=== PATIENT | female | born 1965 | race Caucasian/White ===

== ENCOUNTER → 2017-12-02 | Outpatient (CLI) | payer MEDICARE, BC ==
[2016-10-04 08:16] VITALS: BP 156/83
[~2017-12-02] MED LIST: ALPR1TAB2 PO; ASPI1TAB31 PO; CARB200T PO; DILT180C64 PO; FENT1PAT19 TP; METF500T9 PO; OXYC1TAB9 PO; PRED-220 PO; QUIN40TA16 PO; SIMV40TA3 PO; TIZA4TAB8 PO; VENL75CA PO; ZOLP10TA PO
--- NOTE | 2017-12-02 18:32 | RAD ---
Ultrasound venous Doppler INDICATION:Left leg pain TECHNIQUE: Grayscale, color Doppler and spectral waveform ultrasound images of the left lower extremity deep veins obtained. COMPARISON: None FINDINGS: The interrogated deep veins are compressible and demonstrate evidence of blood flow with normal respiratory variation and response to augmentation. IMPRESSION: No sonographic evidence of acute DVT of the lower extremity deep veins. Electronically signed by: Vishnu Moya DO (12/02/2017 6:29 PM) [facility]
== END | disposition home or self-care (01) ==
LOC: US 17:31
PROVIDERS: ATTEND Family Medicine
DX: M79.605 Pain in left leg (principal)
CPT/HCPCS: 93971

== ENCOUNTER 2018-04-28 14:14 | Inpatient (IN) | payer MEDICARE, BC ==
[~2018-04-28] VITALS: Ht 167.6 cm; Wt 69.6 kg
[~2018-04-28 14:14] MED LIST changes: +OXYC-411 PO; -OXYC1TAB9 PO
[2018-04-28] MEDS ORDERED: METOCLOPRAMIDE HCL 10 MG/2 ML VIAL. IV PRN (15:15)
[2018-04-28] MEDS ORDERED: ONDANSETRON PF 4 MG/2 ML VIAL. IV PRN (15:15)
[2018-04-28] MEDS ORDERED: ALPR1TAB2 PO (15:20)
[2018-04-28] MEDS ORDERED: APIX5TAB3 PO (15:20)
[2018-04-28] MEDS ORDERED: TIZA4TAB8 PO (15:20)
[2018-04-28] MEDS ORDERED: ZOLP5TAB PO ×2 (15:20)
[2018-04-28] MEDS ORDERED: PANT40TA3 PO (15:20)
[2018-04-28] MEDS ORDERED: OXYC-327 PO (15:22)
[2018-04-28] MEDS ORDERED: oxyCODONE/APAP 7.5/325 1 TAB TABLET PO PRN (15:30)
[2018-04-28] MEDS ORDERED: ZOLPIDEM 5 MG TABLET. PO PRN (15:30)
[2018-04-28 15:32] VITALS: BP 130/65
[2018-04-28] MEDS: IV NORMAL SALINE 1,000ML 1,000 ML IV SCH (15:43)
[2018-04-28] MEDS: PANTOPRAZOLE IV 40 MG VIAL. IVP SCH ×2 (15:43→20:49)
[2018-04-28 16:00] LABS: ALBUMIN 3.5 g/dL (3.4-5.0); ALBUMIN/GLOBULIN RATIO 0.9 (1.0-1.7); CREATININE 1.1 mg/dL (0.6-1.0); GFR 51.8; MAGNESIUM 1.6 mg/dL (1.8-2.4); POTASSIUM 4.4 mmol/L (3.5-5.1); TOTAL BILIRUBIN 0.4 mg/dL (0.2-1.0); TOTAL PROTEIN 7.2 g/dL (6.4-8.2)
[2018-04-28] MEDS ORDERED: ALPRAZolam 0.5 MG TABLET PO PRN (16:00)
[2018-04-28 16:08] LABS: BASO % 0 % (0-3); EOS % 0 % (0-3); HEMATOCRIT 39.8 % (36.0-47.0); HEMOGLOBIN 13.3 g/dL (12.0-15.5); LYMPH # 1.4 x10^3/uL (1.0-4.8); LYMPH % 8 % (24-48); MEAN CORPUSCULAR HEMOGLOBIN 30 pg (25-35); MEAN CORPUSCULAR HGB CONC 33 g/dL (31-37); MEAN CORPUSCULAR VOLUME 90 fL (79-100); MONO # 1.3 x10^3/uL (0.0-1.1); MONO % 7 % (0-9); NEUT # 14.5 x10^3uL (1.8-7.7); NEUT % 85 % (31-73); PLATELET COUNT 350 x10^3/uL (140-400); RED BLOOD COUNT 4.44 x10^6/uL (3.50-5.40); WHITE BLOOD COUNT 17.2 x10^3/uL (4.0-11.0)
[2018-04-28] MEDS: fentaNYL 75MCG/HR 1 PATCH PATCH TD SCH ×2 (16:22→16:27)
[2018-04-28] MEDS: metFORMIN XR 500 MG TAB.ER.24H PO SCH (16:36)
[2018-04-28] MEDS: carBAMazepine 200 MG TABLET PO SCH ×2 (16:43→20:51)
[2018-04-28] MEDS ORDERED: MAGNESIUM SULFATE 2GM 50 ML IV ONE (16:45)
[2018-04-28] MEDS: tiZANidine 4 MG TABLET. PO SCH ×2 (18:00→20:50)
[2018-04-28 18:11] LABS: BACTERIA,URINE 0 /HPF (0-FEW); BILIRUBIN,URINE NEG (NEG); CLARITY,URINE CLEAR; COLOR,URINE YELLOW; GLUCOSE,URINE NEG (NEG); HYALINE CASTS, URINE FEW /HPF; NITRITE,URINE NEG (NEG); RBC,URINE OCC /HPF (0-2); SQUAMOUS EPITHELIAL CELL,UR FEW /LPF; UROBILINOGEN,URINE 0.2 mg/dL (0.2 mg/dL)
[2018-04-28 19:13] LABS: % BANDS 1 % (0-9); % EOS 1 % (0-5); % LYMPHS 6 % (24-48); % MONOS 9 % (0-10); % SEGS 80 % (35-66)
[2018-04-28 19:14] LABS: PLT ESTIMATE ADEQUATE (ADEQUATE)
--- NOTE | 2018-04-28 19:16 | RAD ---
Acute abdomen series. History: Nausea, vomiting, diarrhea for 24 hours. Comparison: None. Findings: Frontal chest radiograph. Cardiac silhouette appears within normal limits for size. No pneumoperitoneum, pneumothorax, or large pleural effusion seen. Subtle densities seen in the left lung base. Supine and upright AP views of the abdomen. Bowel gas pattern is nonspecific, without evidence of small bowel obstruction. Bilateral Essure devices are seen in the pelvis. Calcifications in the pelvis are favored to be phleboliths. Levoconvex scoliosis of the lumbar spine is seen. Impression: 1. Subtle density involving the left lung base, could be atelectasis versus developing airspace disease. 2. Nonspecific bowel gas pattern.. Electronically signed by: Kalyan Aragon MD (04/28/2018 7:12 PM) [facility]
[2018-04-28 19:19] LABS: % ATYL 3 % (0-0)
[2018-04-28 19:30] VITALS: BP 186/86
[2018-04-28] MEDS: ALPRAZolam 0.5 MG TABLET PO SCH (20:50)
[2018-04-28] MEDS: SIMVASTATIN 40 MG TABLET. PO SCH (20:50)
[2018-04-28] MEDS: ZOLPIDEM 5 MG TABLET. PO SCH (20:50)
[2018-04-28] MEDS: VENLAFAXINE 50 MG TABLET. PO SCH (20:51)
[2018-04-28] MEDS ORDERED: hydrALAZINE 20 MG/ML VIAL. IV PRN (21:45)
[2018-04-28 22:00] LABS: FECAL OB PT POSITIVE (NEG)
[2018-04-28] MEDS: CLINDAMYCIN 600MG PREMIX 50 ML IV SCH (22:04)
[2018-04-28] MEDS: VANCOMYCIN PER PHARMACY MC PRN (22:16)
[2018-04-28 23:00] VITALS: BP 132/60
[2018-04-28] MEDS ORDERED: VANCOMYCIN 1.75 GM in IV NORMAL SALINE 500ML 500 ML IV ONE (23:00)
[2018-04-29] MEDS: IV NORMAL SALINE 1,000ML 1,000 ML IV SCH ×3 (02:03→18:22)
[2018-04-29 03:00] VITALS: BP 119/54
[2018-04-29] MEDS: CLINDAMYCIN 600MG PREMIX 50 ML IV SCH ×3 (06:23→21:10)
[2018-04-29] MEDS: tiZANidine 4 MG TABLET. PO SCH ×4 (06:23→20:58)
[2018-04-29 06:46] LABS: BASO # 0.1 x10^3/uL (0.0-0.2); BASO % 0 % (0-3); EOS # 0.1 x10^3/uL (0.0-0.7); EOS % 1 % (0-3); HEMATOCRIT 35.5 % (36.0-47.0); LYMPH # 1.5 x10^3/uL (1.0-4.8); LYMPH % 12 % (24-48); MEAN CORPUSCULAR HEMOGLOBIN 30 pg (25-35); MEAN CORPUSCULAR HGB CONC 34 g/dL (31-37); MEAN CORPUSCULAR VOLUME 90 fL (79-100); MONO # 1.2 x10^3/uL (0.0-1.1); MONO % 9 % (0-9); NEUT # 9.6 x10^3uL (1.8-7.7); NEUT % 78 % (31-73); PLATELET COUNT 325 x10^3/uL (140-400); RED BLOOD COUNT 3.95 x10^6/uL (3.50-5.40); RED CELL DISTRIBUTION WIDTH 16.2 % (11.5-14.5); WHITE BLOOD COUNT 12.4 x10^3/uL (4.0-11.0)
[2018-04-29 06:57] LABS: ALBUMIN 3.2 g/dL (3.4-5.0); ALBUMIN/GLOBULIN RATIO 0.9 (1.0-1.7); CALCIUM 8.7 mg/dL (8.5-10.1); CREATININE 0.7 mg/dL (0.6-1.0); GFR 87.2; MAGNESIUM 2.1 mg/dL (1.8-2.4); POTASSIUM 3.9 mmol/L (3.5-5.1); TOTAL BILIRUBIN 0.4 mg/dL (0.2-1.0); TOTAL PROTEIN 6.7 g/dL (6.4-8.2)
[2018-04-29] MEDS: carBAMazepine 200 MG TABLET PO SCH ×4 (07:50→20:58)
[2018-04-29] MEDS: VENLAFAXINE 50 MG TABLET. PO SCH ×3 (07:50→20:59)
[2018-04-29] MEDS: PANTOPRAZOLE IV 40 MG VIAL. IVP SCH ×2 (07:50→20:57)
[2018-04-29] MEDS: metFORMIN XR 500 MG TAB.ER.24H PO SCH ×2 (07:50→17:10)
[2018-04-29] MEDS: LACTOBACILLUS RHAMNOSUS GG 1 CAPSULE. PO SCH ×2 (08:30→20:59)
[2018-04-29] MEDS ORDERED: LISINOPRIL 20 MG TABLET PO SCH (09:00)
[2018-04-29 09:17] VITALS: BP 150/64
[2018-04-29] MEDS ORDERED: LISINOPRIL 20 MG TABLET PO ONE (10:00)
[2018-04-29 13:22] VITALS: BP 123/59
[2018-04-29 19:45] VITALS: BP 140/63
[2018-04-29] MEDS: SUCRALFATE 1 GM/10 ML ORAL.SUSP. PO SCH (20:57)
[2018-04-29] MEDS: VANCOMYCIN 1 GM in IV NORMAL SALINE 250ML 250 ML IV SCH (20:57)
[2018-04-29] MEDS: ZOLPIDEM 5 MG TABLET. PO SCH (20:57)
[2018-04-29] MEDS: ALPRAZolam 0.5 MG TABLET PO SCH (20:58)
[2018-04-29] MEDS: SIMVASTATIN 40 MG TABLET. PO SCH (20:59)
[2018-04-29] MEDS: MUPIROCIN 2% TOPICAL OINTMENT 22GM TUBE. TP SCH (21:09)
[2018-04-30] VITALS (8 sets, daily range): BP systolic 91–178; BP diastolic 53–92
--- NOTE | 2018-04-30 02:50 | HP ---
ADMIT DATE: 04/28/2018 HISTORY OF PRESENT ILLNESS: A 52-year-old female admitted with increased nausea, vomiting, diarrhea, and dehydration. The patient came in. She had been sick for 2-3 days prior to admission, got progressively worse, unable to keep fluids down. Her white count was markedly elevated. DICTATION ENDS HERE. ESTELA MOREIRA MD DR: ANGELINE/blas JOB#: [id number] / [id number]
--- NOTE | 2018-04-30 06:14 | HP ---
ADMIT DATE: 04/28/2018 HISTORY OF PRESENT ILLNESS: A 52-year-old female admitted yesterday with nausea, vomiting, abdominal pain and some diarrhea. The patient came in. She was noted to have an elevated white count of 17,000. The patient was unable to keep much in the way of fluids down or eat or drink. She was dehydrated as well. The patient was admitted to the hospital for further evaluation, IV fluid hydration and further reconciliation of her diarrhea and abdominal pain. The patient per her history, she has progressive multiple sclerosis, hypercholesterolemia, hypertension. She has had a history of gastric ulcers, abdominal surgery for umbilical hernia repair. She has had nausea, vomiting, endometriosis, oophorectomy, diabetes, depression, multiple sclerosis. She has had DVTs in her legs as well as her immunizations for influenza and pneumococcal vaccinations are up-to-date. FAMILY HISTORY: Mother with asthma. Father of some form of cancer. ALLERGIES: THE PATIENT HAS ALLERGY TO SULFA, BACLOFEN, KEFLEX, AND SOME TYPE OF ANTIVIRAL VALGANCICLOVIR. HOME MEDICATIONS: Include that of Zanaflex 4 mg t.i.d., Eliquis 5 mg p.o. b.i.d., simvastatin 40 mg a day, diltiazem 180 mg daily, fentanyl patch every 72 hours 75 mcg, quinapril 40 mg a day, Tegretol 200 mg 4 times a day, Effexor XR, Xanax 1 mg at bedtime, Ambien 5 mg at bedtime, Protonix 40 mg b.i.d., and metformin. SOCIAL HISTORY: The patient denies smoking, alcohol, or drug use. REVIEW OF SYSTEMS: The patient outside of her abdominal pain and cramping also has slight diarrhea, nausea. The patient has been basically stable. She denies chest pain, shortness of breath. Denies headaches, visual changes, blurred vision. Denies any melena, hematochezia, or hematemesis. Neurologically baseline for her. PHYSICAL EXAMINATION: GENERAL: This is a pleasant white female, looking quite ill. VITAL SIGNS: Blood pressure 130/60, respiratory rate 17, pulse 95, afebrile. HEENT: The patient's head was atraumatic, normocephalic. Eyes: PERRLA without jaundice. Mouth and throat were normal. NECK: Supple without JVD, carotid bruits or thyromegaly. LUNGS: Diminished throughout, poor movement of air but clear. CARDIOVASCULAR: Regular sinus rhythm, S1, S2, without murmur, rub, thrill, or extra heart sound. ABDOMEN: Soft, diffuse tenderness in the mid epigastric to left upper quadrant area. EXTREMITIES: No clubbing, cyanosis or edema. NEUROLOGIC: Baseline. LABORATORY DATA: The patient's white count was 17,000, hemoglobin 13, hematocrit 39. The patient's chemistry showed a BUN of 28 and creatinine 1.1, came down to 13 and 0.7 showing the degree of dehydration on this patient. Blood sugar 123. Lactic acid not quite 2. Magnesium was low. Alkaline phosphatase elevated and some slight decrease in her protein. The patient otherwise had positive MRSA around her nares and was positive for stool blood. The patient will be admitted, placed on IV fluids. We will go ahead and she is scheduled to get a CAT scan and make further evaluation of her situation. We will continue with IV fluids and make further evaluation on her electrolytes as well as her other testing as well. 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 Immunizations were up-to-date. PLAN: In any case, the patient would continue with IV fluids, CT scan of the abdomen and pelvis, and make further evaluation on her as indicated. ESTELA MOREIRA MD DR: ANGELINE/blas JOB#: [id number] / [id number]
--- NOTE | 2018-04-30 06:44 | RAD ---
PA and lateral chest. HISTORY: Cough PA and lateral views were taken of the chest. Lungs are clear. There is mild scoliosis. Heart is normal in size. IMPRESSION: 1. No acute chest disease. Electronically signed by: Avinash Gallagher MD (04/30/2018 6:40 AM) [id number]
--- NOTE | 2018-04-30 06:46 | RAD ---
CT brain without contrast. HISTORY: Fall head trauma, laceration forehead Noncontrast CT study was performed to evaluate the brain. There is no intracranial hemorrhage or subdural hematoma. There is mild diffuse atrophy. Ventricles are normal in size. There is no mass or shift of the midline. Sinuses are clear. A skull fracture is not identified. There is soft tissue swelling on the forehead on the right. IMPRESSION: 1. No intracranial hemorrhage or acute finding noted. PQRS Compliance Statement: One or more of the following individualized dose reduction techniques were utilized for this examination: 1. Automated exposure control 2. Adjustment of the mA and/or kV according to patient size 3. Use of iterative reconstruction technique Electronically signed by: Avinash Gallagher MD (04/30/2018 6:42 AM) [facility]
[2018-04-30] MEDS: tiZANidine 4 MG TABLET. PO SCH ×4 (07:00→20:40)
[2018-04-30] MEDS: IV NORMAL SALINE 1,000ML 1,000 ML IV SCH ×2 (07:01→17:01)
[2018-04-30] MEDS: CLINDAMYCIN 600MG PREMIX 50 ML IV SCH (07:11)
[2018-04-30] MEDS: PANTOPRAZOLE IV 40 MG VIAL. IVP SCH (08:00)
[2018-04-30] MEDS: SUCRALFATE 1 GM/10 ML ORAL.SUSP. PO SCH ×4 (08:00→20:40)
[2018-04-30] MEDS: VENLAFAXINE 50 MG TABLET. PO SCH ×3 (08:01→20:40)
[2018-04-30] MEDS: MUPIROCIN 2% TOPICAL OINTMENT 22GM TUBE. TP SCH ×2 (08:01→20:41)
[2018-04-30] MEDS: metFORMIN XR 500 MG TAB.ER.24H PO SCH ×2 (08:01→17:00)
[2018-04-30] MEDS: carBAMazepine 200 MG TABLET PO SCH ×4 (08:01→20:40)
[2018-04-30] MEDS: LACTOBACILLUS RHAMNOSUS GG 1 CAPSULE. PO SCH (08:01)
[2018-04-30] MEDS: FLUTICASONE 50MCG/NASAL SPRAY 16GM BOTTLE. NS SCH (08:01)
[2018-04-30] MEDS: LISINOPRIL 20 MG TABLET PO SCH (08:01)
[2018-04-30 08:27] LABS: BASO % 0 % (0-3); EOS # 0.1 x10^3/uL (0.0-0.7); EOS % 1 % (0-3); HEMOGLOBIN 11.2 g/dL (12.0-15.5); LYMPH # 1.1 x10^3/uL (1.0-4.8); LYMPH % 13 % (24-48); MEAN CORPUSCULAR HEMOGLOBIN 30 pg (25-35); MEAN CORPUSCULAR HGB CONC 33 g/dL (31-37); MEAN CORPUSCULAR VOLUME 91 fL (79-100); MONO # 0.7 x10^3/uL (0.0-1.1); MONO % 9 % (0-9); NEUT # 6.2 x10^3uL (1.8-7.7); NEUT % 77 % (31-73); PLATELET COUNT 277 x10^3/uL (140-400); RED BLOOD COUNT 3.74 x10^6/uL (3.50-5.40); RED CELL DISTRIBUTION WIDTH 15.9 % (11.5-14.5); WHITE BLOOD COUNT 8.1 x10^3/uL (4.0-11.0)
--- NOTE | 2018-04-30 08:28 | RAD ---
CT of the abdomen and pelvis without contrast, 04/30/2018: HISTORY: Fall, abdominal pain, diarrhea, nausea and vomiting Noncontrast scans were obtained as requested. The unopacified liver is unremarkable. There is vague increased density within the dependent aspect of the gallbladder suggesting sludge versus tiny calculi. The pancreas is unremarkable. The spleen is of normal size. The unopacified kidneys show no abnormality. There is moderate aortoiliac calcific plaquing without evidence of aneurysm. No abdominal or pelvic adenopathy is seen. Linear radiopacities related to the uterus probably represent fallopian tube occlusion devices. The bowel loops are not dilated. There is a suggestion of mild mural thickening involving the descending colon and sigmoid colon, although the structures are not well distended. Minimal streaky increased density in the paracolic fat adjacent to the distal descending colon suggests minimal inflammation or scarring. The cecum is low-lying in the anterior aspect of the pelvis. The appendix is not visualized. No dilated appendix or pericecal inflammatory process is seen. Small bubbles of gas along the medial aspect of the second portion of the duodenum probably lie within a duodenal diverticulum. No free air is evident in the abdomen. There is a small amount of free fluid in the deep pelvis. This amount of fluid can be on a physiologic basis. IMPRESSION: 1. Slightly increased density within the dependent aspect of the gallbladder raising the possibility of biliary sludge versus small calculi. 2. Probable mild mural thickening involving the descending and sigmoid colon suggesting nonspecific colitis. 3. Tiny amount of free fluid in the pelvis. Electronically signed by: Surinder Monsivais MD (04/30/2018 8:25 AM) [facility]
[2018-04-30 08:42] LABS: CALCIUM 8.7 mg/dL (8.5-10.1); GFR 57.8; POTASSIUM 3.6 mmol/L (3.5-5.1)
[2018-04-30] MEDS: ALPRAZolam 0.5 MG TABLET PO SCH (20:39)
[2018-04-30] MEDS: ZOLPIDEM 5 MG TABLET. PO SCH (20:40)
[2018-04-30] MEDS: SIMVASTATIN 40 MG TABLET. PO SCH (20:40)
[2018-04-30 21:40] LABS: VANC TR 5.9 mcg/mL (10.0-20.0)
[2018-04-30] MEDS: VANCOMYCIN 1 GM in IV NORMAL SALINE 250ML 250 ML IV SCH (21:50)
[2018-04-30] MEDS: VANCOMYCIN PER PHARMACY MC PRN (22:04)
--- NOTE | 2018-05-01 00:42 | PN ---
DATE: SUBJECTIVE: A 52-year-old female came in with severe nausea, vomiting, abdominal pain. CT scan shows the possibility of a problem of colitis, and as a result of this, the patient is receiving IV clindamycin and now switched over to metronidazole. The patient's white count has come down from 17,000 down to 8000, and the patient is feeling better overall. The patient continues to be monitored. She is not having any further diarrhea. Other body sources are basically positive for blood and MRSA ([place]). However, C. difficile has not been ____ yet. OBJECTIVE: GENERAL: Otherwise, on exam, she is a very pleasant white female who is feeling somewhat better overall. VITAL SIGNS: Blood pressure 160/80, respiration 18, pulse 90. Running low grade temperature. We will continue with IV antibiotic and make further evaluation on her. IMPRESSION: Colitis, history of multiple sclerosis, positive for methicillin-resistant Staphylococcus aureus around the nares. Continue to give IV antibiotic therapy and make further assessment as indicated there. ESETLA MOREIRA MD DR: ANGELINE/blas JOB#: [id number] / [id number]
[2018-05-01] MEDS: IV NORMAL SALINE 1,000ML 1,000 ML IV SCH ×3 (03:01→23:01)
[2018-05-01 05:15] VITALS: BP 155/79
[2018-05-01] MEDS: SUCRALFATE 1 GM/10 ML ORAL.SUSP. PO SCH ×4 (06:32→21:45)
[2018-05-01] MEDS: carBAMazepine 200 MG TABLET PO SCH ×4 (06:32→21:44)
[2018-05-01] MEDS: tiZANidine 4 MG TABLET. PO SCH ×4 (06:32→21:45)
[2018-05-01] MEDS: PANTOPRAZOLE IV 40 MG VIAL. IVP SCH (06:33)
[2018-05-01 08:36] LABS: BASO % 1 % (0-3); CALCIUM 8.9 mg/dL (8.5-10.1); EOS # 0.1 x10^3/uL (0.0-0.7); EOS % 2 % (0-3); GFR 57.8; HEMATOCRIT 32.6 % (36.0-47.0); HEMOGLOBIN 10.9 g/dL (12.0-15.5); LYMPH # 1.2 x10^3/uL (1.0-4.8); LYMPH % 15 % (24-48); MEAN CORPUSCULAR HEMOGLOBIN 30 pg (25-35); MEAN CORPUSCULAR HGB CONC 34 g/dL (31-37); MEAN CORPUSCULAR VOLUME 90 fL (79-100); MONO # 0.7 x10^3/uL (0.0-1.1); MONO % 9 % (0-9); NEUT # 5.7 x10^3uL (1.8-7.7); NEUT % 74 % (31-73); PLATELET COUNT 274 x10^3/uL (140-400); POTASSIUM 3.4 mmol/L (3.5-5.1); RED BLOOD COUNT 3.61 x10^6/uL (3.50-5.40); RED CELL DISTRIBUTION WIDTH 15.7 % (11.5-14.5); WHITE BLOOD COUNT 7.7 x10^3/uL (4.0-11.0)
[2018-05-01] MEDS: fentaNYL 75MCG/HR 1 PATCH PATCH TD SCH (08:48)
[2018-05-01] MEDS: VENLAFAXINE 50 MG TABLET. PO SCH ×3 (08:48→21:45)
[2018-05-01] MEDS: MUPIROCIN 2% TOPICAL OINTMENT 22GM TUBE. TP SCH ×2 (08:48→21:47)
[2018-05-01] MEDS: metFORMIN XR 500 MG TAB.ER.24H PO SCH ×2 (08:49→17:25)
[2018-05-01] MEDS: LISINOPRIL 20 MG TABLET PO SCH (08:49)
[2018-05-01] MEDS: VANCOMYCIN 1 GM in IV NORMAL SALINE 250ML 250 ML IV SCH ×2 (08:53→21:50)
[2018-05-01] MEDS: FLUTICASONE 50MCG/NASAL SPRAY 16GM BOTTLE. NS SCH ×2 (08:57→21:44)
[2018-05-01] MEDS ORDERED: MUPIROCIN 2% TOPICAL OINTMENT 22GM TUBE. TP SCH (09:00)
[2018-05-01 11:11] VITALS: BP 154/75
[2018-05-01 17:35] VITALS: BP 192/88
[2018-05-01] MEDS: ZOLPIDEM 5 MG TABLET. PO SCH (21:44)
[2018-05-01] MEDS: SIMVASTATIN 40 MG TABLET. PO SCH (21:44)
[2018-05-01] MEDS: ALPRAZolam 0.5 MG TABLET PO SCH (21:45)
[2018-05-01] MEDS ORDERED: hydrALAZINE 20 MG/ML VIAL. IV PRN (22:30)
[2018-05-02] MEDS: FLUTICASONE 50MCG/NASAL SPRAY 16GM BOTTLE. NS SCH (09:00)
[2018-05-02] MEDS: IV NORMAL SALINE 1,000ML 1,000 ML IV SCH (09:01)
[2018-05-02 09:14] LABS: VANC TR 21.6 mcg/mL (10.0-20.0)
[2018-05-02] MEDS: VANCOMYCIN 1 GM in IV NORMAL SALINE 250ML 250 ML IV SCH (09:15)
[2018-05-02] MEDS: MUPIROCIN 2% TOPICAL OINTMENT 22GM TUBE. TP SCH (09:15)
[2018-05-02] MEDS: SUCRALFATE 1 GM/10 ML ORAL.SUSP. PO SCH (09:15)
[2018-05-02] MEDS: tiZANidine 4 MG TABLET. PO SCH (09:15)
[2018-05-02 09:16] VITALS: BP 192/88
[2018-05-02] MEDS: PANTOPRAZOLE IV 40 MG VIAL. IVP SCH (09:16)
[2018-05-02] MEDS: metFORMIN XR 500 MG TAB.ER.24H PO SCH (09:16)
[2018-05-02] MEDS: LISINOPRIL 20 MG TABLET PO SCH (09:16)
[2018-05-02] MEDS: carBAMazepine 200 MG TABLET PO SCH (09:17)
[2018-05-02] MEDS: VENLAFAXINE 50 MG TABLET. PO SCH (09:17)
[2018-05-02] MEDS: VANCOMYCIN PER PHARMACY MC PRN (09:41)
[2018-05-02] MEDS ORDERED: FLUT16SP21 NS (09:48)
[2018-05-02] MEDS ORDERED: METR500T8 PO (09:48)
[2018-05-02] MEDS ORDERED: SUCR1ORA5 PO (09:48)
[2018-05-02] MEDS ORDERED: MUPI22OI2 TP (09:48)
--- NOTE | 2018-05-02 21:12 | PN ---
DATE: 05/01/2018 SUBJECTIVE: The patient is resting fairly comfortably. A 52-year-old female with colitis. Today she is feeling overall better, but still somewhat tender in her abdomen. OBJECTIVE: VITAL SIGNS: Blood pressure up to 192/88 (NC), respiratory rate 18, and pulse 80. Afebrile. GENERAL: The patient is alert and oriented. LUNGS: Diminished, but clear. CARDIOVASCULAR: Stable. ABDOMEN: Soft, diffuse tenderness. PLAN: We will go ahead and continue to give IV antibiotic therapy for now, control at the hypertensive urgency and make further evaluation on her as indicated. IMPRESSION: Colitis, essential urgent hypertension, anemia of chronic disease, and history of progressive multiple sclerosis. ESTELA MOREIRA MD DR: ANGELINE/nts JOB#: [id number] / [id number]
[2018-05-03] MEDS ORDERED: VANCOMYCIN 1 GM in IV NORMAL SALINE 250ML 250 ML IV SCH (03:00)
== END 2018-05-02 11:30 | disposition home or self-care (01) | DRG 871 ==
LOC: ICU 14:14
PROVIDERS: ADMIT Family Medicine; ATTEND Family Medicine
DX: A41.9 Sepsis, unspecified organism (principal); N17.0 Acute kidney failure with tubular necrosis; E44.1 Mild protein-calorie malnutrition; B95.62 Methicillin resistant Staphylococcus aureus infection as the cause of diseases classified elsewhere; D63.8 Anemia in other chronic diseases classified elsewhere; E11.9 Type 2 diabetes mellitus without complications; E78.00 Pure hypercholesterolemia, unspecified; E86.0 Dehydration; G35 Multiple sclerosis; F32.9 Major depressive disorder, single episode, unspecified; I10 Essential (primary) hypertension; K52.9 Noninfective gastroenteritis and colitis, unspecified; Z82.5 Family history of asthma and other chronic lower respiratory diseases; Z86.718 Personal history of other venous thrombosis and embolism; Z87.11 Personal history of peptic ulcer disease; Z68.24 Body mass index [BMI] 24.0-24.9, adult; Z88.6 Allergy status to analgesic agent; Z88.2 Allergy status to sulfonamides; Z88.8 Allergy status to other drugs, medicaments and biological substances
CPT/HCPCS: 36415; 70450; 71046; 74022; 74176; 80048; 80053; 80202; 81001; 82274; 83605; 83735; 85007; 85025; 85379; 85610; 87045; 87641; C9113; J2405; J3370; J3475; J3490; J7040; J7050; J7030

== ENCOUNTER 2018-06-05 11:59 | Inpatient (IN) | payer MEDICARE, BC ==
[~2018-06-05] VITALS: Ht 167.6 cm; Wt 68.1 kg
[~2018-06-05 11:59] MED LIST changes: +APIX5TAB3 PO; +FLUT16SP21 NS; +METR500T8 PO; +MUPI22OI2 TP; +OXYC-327 PO; +PANT40TA3 PO; +SUCR1ORA5 PO; +ZOLP5TAB PO
[2018-06-05 12:47] VITALS: BP 164/85
[2018-06-05] MEDS ORDERED: METO25TA4 PO (13:23)
[2018-06-05] MEDS ORDERED: FERR325T14 PO (13:31)
[2018-06-05] MEDS ORDERED: APIX5TAB3 PO (13:32)
[2018-06-05] MEDS ORDERED: GLAT40SY SQ (13:36)
[2018-06-05] MEDS ORDERED: ACETAMINOPHEN 325 MG TABLET PO PRN (13:45)
[2018-06-05] MEDS ORDERED: ONDANSETRON PF 4 MG/2 ML VIAL. IV PRN (13:45)
[2018-06-05 14:07] LABS: BASO % 0 % (0-3); EOS % 0 % (0-3); HEMOGLOBIN 13.8 g/dL (12.0-15.5); LYMPH # 1.2 x10^3/uL (1.0-4.8); LYMPH % 14 % (24-48); MEAN CORPUSCULAR HEMOGLOBIN 31 pg (25-35); MEAN CORPUSCULAR HGB CONC 35 g/dL (31-37); MEAN CORPUSCULAR VOLUME 90 fL (79-100); MONO # 0.6 x10^3/uL (0.0-1.1); MONO % 7 % (0-9); NEUT # 6.6 x10^3uL (1.8-7.7); NEUT % 79 % (31-73); PLATELET COUNT 402 x10^3/uL (140-400); RED BLOOD COUNT 4.44 x10^6/uL (3.50-5.40); RED CELL DISTRIBUTION WIDTH 14.8 % (11.5-14.5); WHITE BLOOD COUNT 8.4 x10^3/uL (4.0-11.0)
[2018-06-05 14:21] LABS: ALBUMIN 4.4 g/dL (3.4-5.0); ALBUMIN/GLOBULIN RATIO 1.1 (1.0-1.7); CALCIUM 9.8 mg/dL (8.5-10.1); CREATININE 1.3 mg/dL (0.6-1.0); GFR 42.7; POTASSIUM 3.9 mmol/L (3.5-5.1); TOTAL BILIRUBIN 0.3 mg/dL (0.2-1.0); TOTAL PROTEIN 8.4 g/dL (6.4-8.2)
--- NOTE | 2018-06-05 14:59 | RAD ---
CT Abdomen and Pelvis without contrast History: Abdominal pain with nausea and vomiting Technique: Noncontrast CT imaging was performed of the abdomen and pelvis. Multiplanar images are reviewed. Exposure: One or more of the following individualized dose reduction techniques were utilized for this examination: 1. Automated exposure control 2. Adjustment of the mA and/or kV according to patient size 3. Use of iterative reconstruction technique. Comparison: April 30, 2018 Findings: Accurate evaluation of abdominal visceral organs is limited without intravenous contrast. There is no obvious abnormality of the spleen, liver, or pancreas. There is no adrenal nodularity. No urolithiasis or hydronephrosis is identified. Gallbladder is present again with some vague dependent hyperdensity. Aaccurate evaluation of bowel is limited without oral contrast. There is no significant free air, free fluid, bowel dilatation. Appendix is not visualized if still present. Cecum is now more deviated to the left abdominal region. There is mild sigmoid diverticulosis, not associated with significant inflammatory change. Impression: 1. There is again some vague hyperdensity in the gallbladder possibly due to sludge or cholelithiasis. Appendix is not visualized if still present. 2. Bowel is not considered slightly dilated. There is now deviation of the cecum to the left abdomen (mobile or floppy cecem). There is mild sigmoid diverticulosis. Electronically signed by: Forest Du MD (06/05/2018 2:56 PM) [id number]
[2018-06-05] MEDS: IV NORMAL SALINE 1,000ML 1,000 ML IV SCH ×2 (15:04→21:11)
[2018-06-05 15:23] VITALS: BP 177/87
[2018-06-05] MEDS ORDERED: oxyCODONE/APAP 7.5/325 1 TAB TABLET PO PRN (16:00)
[2018-06-05] MEDS: SUCRALFATE 1 GM TABLET. PO SCH ×2 (17:28→21:10)
[2018-06-05] MEDS: PANTOPRAZOLE IV 40 MG VIAL. IVP SCH (17:28)
[2018-06-05] MEDS: carBAMazepine 200 MG TABLET PO SCH ×2 (17:28→21:10)
[2018-06-05] MEDS: metFORMIN XR 500 MG TAB.ER.24H PO SCH (17:28)
[2018-06-05] MEDS: tiZANidine 4 MG TABLET. PO SCH ×2 (17:28→21:09)
[2018-06-05 20:00] VITALS: BP 181/81
[2018-06-05] MEDS: APIXABAN 5 MG TABLET. PO SCH (21:00)
[2018-06-05] MEDS ORDERED: PANTOPRAZOLE 40 MG TABLET. PO SCH (21:00)
[2018-06-05] MEDS: Glatiramer Acetate (Copaxone) 40 MG SQ SCH (21:07)
[2018-06-05] MEDS: VENLAFAXINE 100 MG TABLET. PO SCH (21:09)
[2018-06-05] MEDS: METOPROLOL TART IMMED RELEASE 25 MG TABLET PO SCH (21:10)
[2018-06-05] MEDS: SIMVASTATIN 40 MG TABLET. PO SCH (21:10)
[2018-06-05] MEDS: ALPRAZolam 0.5 MG TABLET PO SCH (21:10)
[2018-06-05] MEDS: ZOLPIDEM 5 MG TABLET. PO PRN (21:11)
[2018-06-05 22:14] VITALS: BP 117/61
[2018-06-06] VITALS (7 sets, daily range): BP systolic 130–188; BP diastolic 64–92
[2018-06-06 04:51] LABS: CLARITY,URINE CLEAR; COLOR,URINE YELLOW
[2018-06-06 04:52] LABS: BACTERIA,URINE 0 /HPF (0-FEW); BILIRUBIN,URINE NEG (NEG); GLUCOSE,URINE NEG (NEG); NITRITE,URINE NEG (NEG); RBC,URINE 0 /HPF (0-2); SQUAMOUS EPITHELIAL CELL,UR FEW /LPF; UROBILINOGEN,URINE 0.2 mg/dL (0.2 mg/dL); WBC,URINE OCC /HPF (0-4)
[2018-06-06 04:53] LABS: HYALINE CASTS, URINE OCC /HPF
[2018-06-06] MEDS: tiZANidine 4 MG TABLET. PO SCH ×4 (06:29→21:01)
[2018-06-06 06:48] LABS: BASO # 0.1 x10^3/uL (0.0-0.2); BASO % 1 % (0-3); EOS # 0.1 x10^3/uL (0.0-0.7); EOS % 1 % (0-3); HEMATOCRIT 36.1 % (36.0-47.0); HEMOGLOBIN 12.4 g/dL (12.0-15.5); LYMPH # 2.1 x10^3/uL (1.0-4.8); LYMPH % 28 % (24-48); MEAN CORPUSCULAR HEMOGLOBIN 31 pg (25-35); MEAN CORPUSCULAR HGB CONC 34 g/dL (31-37); MEAN CORPUSCULAR VOLUME 90 fL (79-100); MONO % 13 % (0-9); NEUT # 4.4 x10^3uL (1.8-7.7); NEUT % 58 % (31-73); PLATELET COUNT 385 x10^3/uL (140-400); RED CELL DISTRIBUTION WIDTH 14.9 % (11.5-14.5); WHITE BLOOD COUNT 7.6 x10^3/uL (4.0-11.0)
[2018-06-06 06:51] LABS: CALCIUM 9.3 mg/dL (8.5-10.1); CREATININE 0.9 mg/dL (0.6-1.0); GFR 65.2; POTASSIUM 3.9 mmol/L (3.5-5.1)
[2018-06-06] MEDS: SUCRALFATE 1 GM TABLET. PO SCH ×4 (07:45→21:01)
[2018-06-06] MEDS: APIXABAN 5 MG TABLET. PO SCH ×2 (09:00→21:00)
[2018-06-06] MEDS: FLUTICASONE 50MCG/NASAL SPRAY 16GM BOTTLE. NS SCH (09:01)
[2018-06-06] MEDS: METOPROLOL TART IMMED RELEASE 25 MG TABLET PO SCH ×2 (09:02→21:02)
[2018-06-06] MEDS: metFORMIN XR 500 MG TAB.ER.24H PO SCH ×2 (09:02→17:22)
[2018-06-06] MEDS: FERROUS SULFATE 325 MG TABLET. PO SCH (09:02)
[2018-06-06] MEDS: LISINOPRIL 20 MG TABLET PO SCH (09:02)
[2018-06-06] MEDS: carBAMazepine 200 MG TABLET PO SCH ×4 (09:03→21:02)
[2018-06-06] MEDS: VENLAFAXINE 100 MG TABLET. PO SCH ×3 (09:04→21:00)
[2018-06-06] MEDS: PANTOPRAZOLE IV 40 MG VIAL. IVP SCH (09:04)
[2018-06-06] MEDS: IV NORMAL SALINE 1,000ML 1,000 ML IV SCH ×2 (09:13→17:24)
[2018-06-06] MEDS: ASA/APAP/CAFFEINE 250/250/65MG TABLET. PO PRN ×2 (13:42→21:01)
[2018-06-06] MEDS: SIMVASTATIN 40 MG TABLET. PO SCH (21:00)
[2018-06-06] MEDS: ALPRAZolam 0.5 MG TABLET PO SCH (21:02)
[2018-06-06] MEDS: ZOLPIDEM 5 MG TABLET. PO PRN (21:02)
--- NOTE | 2018-06-07 04:20 | PN ---
DATE: SUBJECTIVE: The patient resting fairly comfortably, came in with severe nausea and vomiting, some of that is resolved. She is becoming a little bit more tolerating, start her on clear liquids and will continue to monitor her accordingly. PHYSICAL EXAMINATION: VITAL SIGNS: Otherwise, the patient's blood pressure is still elevated at 185/92, pulse upwards of 100, temperature she is afebrile. She did have initial temperature when she came in to 99.5. GENERAL: The patient otherwise seems to be resting fairly comfortably, will continue to be monitored carefully, make further evaluation. Otherwise, the patient is alert and oriented. LUNGS: Diminished, but clear. CARDIOVASCULAR: Stable. ABDOMEN: Soft, nontender, no rebounding, no guarding. Positive bowel sounds. IMPRESSION: Therefore, nausea, vomiting, dehydration, possible gallbladder problem, hypertension and sinus tachycardia. ESTELA MOREIRA MD DR: ANGELINE/blas JOB#: [id number] / [id number]
[2018-06-07] MEDS: IV NORMAL SALINE 1,000ML 1,000 ML IV SCH ×2 (05:15→17:00)
[2018-06-07 05:30] VITALS: BP 149/73
[2018-06-07] MEDS: tiZANidine 4 MG TABLET. PO SCH ×4 (06:10→21:25)
[2018-06-07] MEDS: SUCRALFATE 1 GM TABLET. PO SCH ×4 (07:30→21:25)
[2018-06-07] MEDS: APIXABAN 5 MG TABLET. PO SCH ×2 (09:00→21:00)
[2018-06-07] MEDS: carBAMazepine 200 MG TABLET PO SCH ×4 (09:38→21:26)
[2018-06-07] MEDS: LISINOPRIL 20 MG TABLET PO SCH (09:38)
[2018-06-07] MEDS: metFORMIN XR 500 MG TAB.ER.24H PO SCH ×2 (09:38→16:58)
[2018-06-07] MEDS: METOPROLOL TART IMMED RELEASE 25 MG TABLET PO SCH ×2 (09:39→21:26)
[2018-06-07] MEDS: PANTOPRAZOLE IV 40 MG VIAL. IVP SCH (09:39)
[2018-06-07] MEDS: FERROUS SULFATE 325 MG TABLET. PO SCH (09:39)
[2018-06-07] MEDS: VENLAFAXINE 100 MG TABLET. PO SCH ×3 (09:40→21:25)
[2018-06-07] MEDS: FLUTICASONE 50MCG/NASAL SPRAY 16GM BOTTLE. NS SCH (09:40)
[2018-06-07 11:00] VITALS: BP 169/75
[2018-06-07] MEDS: ASA/APAP/CAFFEINE 250/250/65MG TABLET. PO PRN ×2 (14:05→21:25)
[2018-06-07 15:00] VITALS: BP 151/77
[2018-06-07 19:31] VITALS: BP 164/94
[2018-06-07] MEDS ORDERED: fentaNYL 75MCG/HR 1 PATCH PATCH TD SCH (21:00)
[2018-06-07] MEDS: ZOLPIDEM 5 MG TABLET. PO PRN (21:25)
[2018-06-07] MEDS: SIMVASTATIN 40 MG TABLET. PO SCH (21:26)
[2018-06-07] MEDS: ALPRAZolam 0.5 MG TABLET PO SCH (21:26)
[2018-06-07] MEDS: Glatiramer Acetate (Copaxone) 40 MG SQ SCH (21:26)
[2018-06-07 22:30] VITALS: BP 147/81
--- NOTE | 2018-06-08 01:05 | PN ---
DATE: 06/07/2018 SUBJECTIVE: A 52-year-old female in with nausea, vomiting, dehydration, possible flare up of her MS. The patient is doing better. We are trying to advance her diet. We will continue on IV fluids as well as she is still receiving medication for her nausea. She is still very weak on her feet, receiving PT, OT, we will continue to monitor the patient accordingly to make further evaluation on her as indicated. PHYSICAL EXAMINATION: VITAL SIGNS: Otherwise, the patient's blood pressure 138/80, pulse 80, and afebrile. HEENT: We will continue to monitor the patient accordingly make further evaluation on her as indicated. IMPRESSION: Nausea, vomiting, abdominal pain, and dehydration. ESTELA MOREIRA MD DR: ANGELINE/blas JOB#: [id number] / [id number]
[2018-06-08] MEDS: IV NORMAL SALINE 1,000ML 1,000 ML IV SCH ×3 (03:14→19:56)
[2018-06-08] MEDS: ALPRAZolam 0.5 MG TABLET PO PRN ×2 (03:14→22:17)
[2018-06-08 05:23] VITALS: BP 148/76
[2018-06-08] MEDS: tiZANidine 4 MG TABLET. PO SCH ×4 (06:28→19:57)
[2018-06-08] MEDS: SUCRALFATE 1 GM TABLET. PO SCH ×4 (07:30→19:58)
[2018-06-08] MEDS: PANTOPRAZOLE IV 40 MG VIAL. IVP SCH (08:35)
[2018-06-08] MEDS: metFORMIN XR 500 MG TAB.ER.24H PO SCH ×2 (08:35→14:52)
[2018-06-08] MEDS: FERROUS SULFATE 325 MG TABLET. PO SCH (08:36)
[2018-06-08] MEDS: LISINOPRIL 20 MG TABLET PO SCH (08:36)
[2018-06-08] MEDS: carBAMazepine 200 MG TABLET PO SCH ×4 (08:36→19:57)
[2018-06-08] MEDS: METOPROLOL TART IMMED RELEASE 25 MG TABLET PO SCH ×3 (08:37→19:57)
[2018-06-08] MEDS: VENLAFAXINE 100 MG TABLET. PO SCH ×3 (08:38→19:58)
[2018-06-08] MEDS: FLUTICASONE 50MCG/NASAL SPRAY 16GM BOTTLE. NS SCH (08:39)
[2018-06-08] MEDS: APIXABAN 5 MG TABLET. PO SCH ×2 (08:46→20:04)
--- NOTE | 2018-06-08 12:41 | PN ---
DATE: 06/08/2018 SUBJECTIVE: [id number] female in with nausea, vomiting, dehydration. The patient is resting comfortably, still not eating very well. Still weak, still receiving IV fluids. OBJECTIVE: VITAL SIGNS: Patient's blood pressure 148/76, respiratory rate 18, pulse 70, afebrile. GENERAL: The patient is alert, somewhat more alert than she has been. EXTREMITIES: No clubbing, cyanosis, or edema. NEUROLOGIC: The patient was alert and oriented x 3. LUNGS: Clear. CARDIOVASCULAR: Stable. ABDOMEN: Soft, diffuse tenderness. The patient still has generalized weakness. The patient apparently has stopped her Eliquis a couple of months ago. She has been on it for more than 5 months at that time, felt she does not need it. Otherwise, the patient is resting fairly comfortably, making fairly good progress overall. We will go ahead and continue with PT, OT to try to get her strength up and then have her ready for hopefully discharge in the a.m. as we advance her diet. ESTELA MOREIRA MD DR: ANGELINE/blas JOB#: [id number] / [id number]
[2018-06-08 14:13] VITALS: BP 172/79
[2018-06-08] MEDS: ASA/APAP/CAFFEINE 250/250/65MG TABLET. PO PRN ×2 (14:52→21:15)
[2018-06-08 19:22] VITALS: BP 166/71
[2018-06-08] MEDS: SIMVASTATIN 40 MG TABLET. PO SCH (19:57)
[2018-06-08] MEDS: ALPRAZolam 0.5 MG TABLET PO SCH (19:57)
[2018-06-08] MEDS: ZOLPIDEM 5 MG TABLET. PO PRN (19:58)
[2018-06-08 23:01] VITALS: BP 177/83
[2018-06-09] MEDS: ASA/APAP/CAFFEINE 250/250/65MG TABLET. PO PRN ×2 (04:53→14:30)
[2018-06-09 05:15] VITALS: BP 174/81
[2018-06-09] MEDS: tiZANidine 4 MG TABLET. PO SCH ×2 (06:13→14:17)
[2018-06-09] MEDS: IV NORMAL SALINE 1,000ML 1,000 ML IV SCH (07:45)
[2018-06-09] MEDS: carBAMazepine 200 MG TABLET PO SCH ×2 (08:12→14:17)
[2018-06-09] MEDS: metFORMIN XR 500 MG TAB.ER.24H PO SCH (08:12)
[2018-06-09] MEDS: FERROUS SULFATE 325 MG TABLET. PO SCH (08:12)
[2018-06-09] MEDS: FLUTICASONE 50MCG/NASAL SPRAY 16GM BOTTLE. NS SCH (08:12)
[2018-06-09] MEDS: METOPROLOL TART IMMED RELEASE 25 MG TABLET PO SCH (08:13)
[2018-06-09] MEDS: SUCRALFATE 1 GM TABLET. PO SCH ×2 (08:13→11:45)
[2018-06-09] MEDS: LISINOPRIL 20 MG TABLET PO SCH (08:13)
[2018-06-09] MEDS: PANTOPRAZOLE IV 40 MG VIAL. IVP SCH (08:14)
[2018-06-09] MEDS: APIXABAN 5 MG TABLET. PO SCH (08:14)
[2018-06-09] MEDS: VENLAFAXINE 100 MG TABLET. PO SCH ×2 (08:14→14:17)
[2018-06-09 11:46] VITALS: BP 154/76
[2018-06-09 14:17] VITALS: BP 158/83
--- NOTE | 2018-06-19 12:55 | DS ---
DATE OF DISCHARGE: 06/09/2018 HOSPITAL COURSE: The patient initially brought in through the direct admit. She was having severe nausea and vomiting. For several days prior to admission, she was running a temperature over 100 as well as her blood pressure was in the urgent range over 185/90. The patient was admitted to the hospital and placed on IV fluids, exams were performed. She had a CT abdomen and pelvis, which was nonconclusive, possible gallbladder problems, which have been high on the list. She will get a further scan as an outpatient. 148/76, she came down on her blood pressure as noted. Temperature defervesced. The patient's blood sugars checked as she is a diabetic. Renal function improved. IMPRESSION: Gastroenteritis, abdominal pain, dehydration, acute renal failure, type 2 diabetes. Continue to monitor the patient accordingly. The patient made good progress. She will be discharged home. See MRAD and decreased activity. We will get probably a nuclear scan on her gallbladder as an outpatient. ESTELA MOREIRA MD DR: ANGELINE/lbas JOB#: [id number] / [id number]
== END 2018-06-09 15:55 | disposition home or self-care (01) | DRG 446 ==
LOC: 1 SOUTH 12:05
PROVIDERS: ADMIT Family Medicine; ATTEND Family Medicine
DX: K82.8 Other specified diseases of gallbladder (principal); E86.0 Dehydration; I10 Essential (primary) hypertension; R00.0 Tachycardia, unspecified; E78.00 Pure hypercholesterolemia, unspecified; N28.9 Disorder of kidney and ureter, unspecified; Z88.2 Allergy status to sulfonamides; Z90.721 Acquired absence of ovaries, unilateral; E11.65 Type 2 diabetes mellitus with hyperglycemia; G35 Multiple sclerosis; Z79.891 Long term (current) use of opiate analgesic; Z79.899 Other long term (current) drug therapy; Z83.3 Family history of diabetes mellitus; Z80.1 Family history of malignant neoplasm of trachea, bronchus and lung; Z82.49 Family history of ischemic heart disease and other diseases of the circulatory system
CPT/HCPCS: 36415; 74176; 80048; 80053; 81001; 82150; 82947; 83690; 85025; 87086; 87641; C9113; 97110; J7030

== ENCOUNTER → 2020-01-21 | Outpatient (CLI) | payer MEDICARE, BC ==
[~2020-01-21] MED LIST changes: +FERR325T14 PO; +GLAT40SY SQ; +METF500T11 PO; -METF500T9 PO; +METO25TA4 PO; +METR-34 PO; -METR500T8 PO; -OXYC-327 PO; +OXYC1TAB19 PO; +SIMV40TA18 PO; -SIMV40TA3 PO
--- NOTE | 2020-01-21 18:02 | RAD ---
SHOULDER 2+V LEFT, HAND LEFT 3V, FOREARM LEFT 01/21/2020 12:00 AM INDICATION: Fall 2 days ago with shoulder pain, left hand pain in the forearm pain. Bruising along arm COMPARISON: None available. TECHNIQUE: 3 views of the left shoulder, 2 views of the left forearm and 3 views the left hand are provided. FINDINGS/ IMPRESSION: 1. Left shoulder: There is remodeling of the distal left clavicle suggestive of remote healed fracture. There is no acute fracture or dislocation. Joint spaces are maintained. Bone mineralization is within normal limits. Regional soft tissues are within normal limits. There is no soft tissue gas or osseous erosion. No radiopaque foreign body. 2. Left forearm: There is elevation of the anterior fat pad of the left elbow. No definite elbow joint effusion. Radial head appears intact. Forearm is intact. No acute fracture or dislocation. 3. Left hand: Mild joint space narrowing involving the first carpometacarpal joint. No acute fracture or dislocation. Bone mineralization is within normal limits. No significant soft tissue swelling. Electronically signed by: Ruthie Peña MD (01/21/2020 6:00 PM) [facility]
== END ==
LOC: RAD 17:35
PROVIDERS: ATTEND Family Medicine
DX: S60.222A Contusion of left hand, initial encounter (principal); M62.81 Muscle weakness (generalized); X58.XXXA Exposure to other specified factors, initial encounter; Y93.89 Activity, other specified; Y92.89 Other specified places as the place of occurrence of the external cause; Y99.8 Other external cause status
CPT/HCPCS: 73030; 73090; 73130